=== PATIENT | female | born 2000 | race Caucasian/White ===

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

== ENCOUNTER 2023-10-29 09:56 | Inpatient (IN) ==
[2023-10-29] MEDS ORDERED: Lidocaine 1% VIAL 10 MG/ML 30 ML VIAL INJ PRN (10:33)
[2023-10-29] MEDS ORDERED: Prochlorperazine 5 mg/ml 2 ml VIAL (10 mg) IV PRN (10:33)
[2023-10-29] MEDS ORDERED: Nalbuphine 10 MG/ML 1 ML VIAL IV PRN (10:33)
[2023-10-29 11:36] LABS: Urine Creatinine Concentration 59.32 mg/dL (20.00-320.00); Urine TP Creat Ratio 0.08 mg/mg
[2023-10-29 11:38] LABS: Urine Benzodiazepine Screen None Detected (None Detect); Urine Cannabinoids Screen None Detected (None Detect); Urine Opiates Screen None Detected (None Detect)
[2023-10-29] MEDS: Buffered Lidocaine 1% SYRIN 1 ml INTRADERM ONE (12:33)
[2023-10-29] MEDS: miSOPROStol 100 mcg TAB PO SCH (12:55)
[2023-10-29 13:00] LABS: ABS Eosinophils 0.1 10^3/uL (0.0-0.5); ABS Lymphocytes 2.1 10^3/uL (1.0-4.8); ABS Monocytes 0.5 10^3/uL (0.0-0.9); ABS Neutrophils 6.2 10^3/uL (1.5-7.6); Eosinophil % 0.6 %; Hemoglobin 12.5 g/dL (11.5-14.3); Lymphocyte % 23.9 %; Mean Corpuscular Hemoglobin 28.1 pg (27-33); Mean Corpuscular Hgb Conc 32.8 g/dL (31-36); Mean Corpuscular Volume 85.6 fL (80-97); Mean Platelet Volume 9.9 fL (7.5-11.2); Nucleated Red Blood Cells % 0.1 %/100WBC (0.0-0.8); Platelet Count 201 10^3/uL (150-450); Red Blood Count 4.44 10^6/uL (3.63-4.92); Red Cell Distribution Width 13.8 % (12-17); White Blood Count 8.9 10^3/uL (3.8-11.8)
[2023-10-29 13:03] LABS: ALT 18 U/L (7-52); Albumin 3.8 g/dL (3.2-5.2); Albumin/Globulin Ratio 1.5 (1-3); Alkaline Phosphatase 98 U/L (35-149); Anion Gap 9 mmol/L (2-16); Blood Urea Nitrogen 7 mg/dL (6-24); CO2 Carbon Dioxide 18 mmol/L (22-32); Calcium 8.6 mg/dL (8.6-10.3); Chloride 106 mmol/L (101-111); Creatinine, Serum 0.48 mg/dL (0.51-0.95); Globulin 2.6 g/dL (2-4); Glucose 70 mg/dL (70-100); Sodium 133 mmol/L (135-145); Total Bilirubin 0.3 mg/dL (0.2-1.0); Total Protein 6.4 g/dL (6.4-8.9); eGFR CKD-EPI 136.4 (>60)
[2023-10-29 15:44] LABS: Potassium Redraw 4.1 mmol/L (3.5-5.0)
[2023-10-29] MEDS: Lactated Ringers 1000 ml BAG 1,000 ML IV ONE (18:40)
[2023-10-30] MEDS: Dinoprostone 10 MG VAG.SUPP VAGINAL ONE (00:24)
[2023-10-30] MEDS: Lactated Ringers 1000 ml BAG 1,000 ML IV SCH ×2 (09:21→19:30)
[2023-10-30] MEDS: Oxytocin in LR 20,000 MILLI.UNIT/1,000 ML BAG IV SCH ×2 (09:23→17:43)
[2023-10-30] MEDS ORDERED: Sodium Citrate/Citric Acid LIQ 15 ML UDC PO PRN (13:10)
[2023-10-30] MEDS ORDERED: Phenylephrine 40 mcg/mL 10mL (400mcg) SYRINGE IV PUSH PRN ×2 (13:10)
[2023-10-30] MEDS: Lactated Ringers 1000 ml BAG 1,000 ML IV ONE (13:13)
[2023-10-30] MEDS: OBEPIDURAL (200 ML) 200 ML EPIDURAL ONE (13:34)
[2023-10-30 15:38] LABS: Urine Appearance Clear; Urine Bilirubin Negative (Negative); Urine Blood 2+ (Negative); Urine Color Light-Yellow; Urine Glucose Negative (Negative); Urine Ketones Trace (Negative); Urine Nitrite Negative (Negative); Urine Protein Negative (Negative); Urine Specific Gravity 1.015 (1.002-1.030); Urine Urobilinogen Negative (Negative)
[2023-10-30 15:46] LABS: Urine Bacteria Absent /HPF (Absent); Urine Red Blood Cell 3+(>10/hpf) /HPF (0-Trace); Urine Squamous Epithelial Cell Present /HPF (Absent); Urine White Blood Cell Trace(0-5/hpf) /HPF (0-Trace)
[2023-10-30] MEDS ORDERED: Glycerin ADULT 2.4 gm SUPP PR PRN (16:41)
[2023-10-30] MEDS ORDERED: Lactated Ringers 1000 ml BAG 1,000 ML IV SCH (17:00)
[2023-10-30] MEDS: Dibucaine 1% OINT 28.35 GM TUBE PR PRN (17:42)
[2023-10-30] MEDS: Witch Hazel PAD JAR TOPICAL PRN (17:42)
[2023-10-30] MEDS: Phenylephrine 40 mcg/mL 10mL (400mcg) SYRINGE ONE (19:29)
[2023-10-30] MEDS: Lidocaine/Epinephrin 1.5%/200 5 ML AMP INJ ONE (19:29)
[2023-10-30] MEDS: OBEPIDURAL (200 ML) 200 ML EPIDURAL SCH (19:30)
[2023-10-30] MEDS: Bupivacaine 0.25% SDV PF 10 ML VIAL INJ ONE (19:30)
[2023-10-31 05:40] LABS: ABS Eosinophils 0.1 10^3/uL (0.0-0.5); ABS Lymphocytes 2.6 10^3/uL (1.0-4.8); ABS Monocytes 0.7 10^3/uL (0.0-0.9); ABS Neutrophils 8.6 10^3/uL (1.5-7.6); Eosinophil % 0.8 %; Hematocrit 35.1 % (35-45); Hemoglobin 11.8 g/dL (11.5-14.3); Lymphocyte % 21.3 %; Mean Corpuscular Hemoglobin 28.7 pg (27-33); Mean Corpuscular Hgb Conc 33.6 g/dL (31-36); Mean Corpuscular Volume 85.6 fL (80-97); Mean Platelet Volume 9.8 fL (7.5-11.2); Platelet Count 172 10^3/uL (150-450); Red Cell Distribution Width 13.7 % (12-17)
[2023-11-01 09:50] VITALS: BP 138/86
== END 2023-11-01 11:39 | disposition home or self-care (01) | DRG 807 ==
LOC: MCHOBOUT 09:56 → MCHOB 10:51
PROVIDERS: ADMIT Obstetrics & Gynecology; ATTEND Obstetrics & Gynecology